=== PATIENT | female | born 1990 | race African-American/Black ===

== ENCOUNTER 2016-09-03 00:31 | Emergency (ER) | payer OTHER ==
[~2016-09-03] VITALS: Ht 170.2 cm; Wt 77.1 kg
[~2016-09-03 00:31] MED LIST: FLEXERIL10 MG PO; FLONASE16 G1 BOTH NARES; NAPROSYN500 MG PO; ZOFRAN ODT4 MG PO
[2016-09-03 01:18] LABS: HEMATOCRIT 40.9 % (36.0-46.0); MCH 31.4 PG (29.0-34.0); MCHC 35.2 G/DL (30.0-36.0); MCV 89.1 FL (83-99); MEAN PLAT.VOLUME 10.7 uM^3 (9.5-12.4); PLATELET COUNT 253 K/uL (156-360); RBC DIS.WIDTH-CV 12.2 % (11.8-14.6); RBC DIS.WIDTH-SD 38.9 % (39-53); RED BLOOD COUNT 4.59 M/uL (3.80-5.20); WHITE BLOOD COUNT 6.4 K/uL (4.1-10.2)
[2016-09-03 01:24] LABS: CHLORIDE 105 mEq/L (99-109); POTASSIUM 3.9 mEq/L (3.7-5.4); SODIUM 139 mEq/L (136-147)
[2016-09-03 01:27] LABS: GLUCOSE 97 mg/dL (70-99)
[2016-09-03 01:28] LABS: ANION GAP 8 MEQ/L (2-14)
[2016-09-03 01:30] LABS: ALKALINE PHOSPHATASE 46 IU/L (3-129); GFR ESTIMATE (CALCULATED) > 59 mL/min/
[2016-09-03 01:31] LABS: UREA NITROGEN (BUN) 13 mg/dL (9-23)
[2016-09-03 01:39] LABS: QUANTITATIVE HCG < 4.0 MIU/ML
[2016-09-03 04:28] LABS: LIPASE 18 U/L (1.0-51.0)
[2016-09-03 04:41] LABS: ADD MIUA? YES; BILIRUBIN NEGATIVE; BLOOD NEGATIVE; COLOR YELLOW ((YELLOW)); GLUCOSE (STRIP) NEGATIVE; KETONES NEGATIVE; LEUKOCYTES SMALL; NITRITE NEGATIVE; PH, URINE 6.5 (5-8); PROTEIN (STRIP) NEGATIVE; SPECIFIC GRAVITY 1.029 (1.000-1.030)
[2016-09-03 05:07] LABS: BACTERIA 2+ /HPF; CASTS NONE SEEN /LPF; CRYSTALS NONE SEEN; EPITHELIAL CELLS RARE /HPF; MUCUS RARE /LPF; RED BLOOD CELLS NONE SEEN /HPF (0-5); UCUL ADDED? NO; WHITE BLOOD CELLS 0-5 /HPF (0-5)
[2016-09-03] MEDS ORDERED: ZOFRAN8 MG PO (05:17)
[2016-09-03] MEDS ORDERED: MACROBID100 MG PO (05:17)
[2016-09-03 05:42] VITALS: BP 113/81
== END 2016-09-03 05:42 | disposition home or self-care (01) ==
LOC: EME 00:31
DX: N39.0 Urinary tract infection, site not specified (principal); R11.2 Nausea with vomiting, unspecified
CPT/HCPCS: 80053; 81003; 83690; 84702; 85027; 99281; 99284; Q0169

== ENCOUNTER 2016-11-27 22:27 | Emergency (ER) | payer OTHER ==
[~2016-11-27] VITALS: Ht 170.2 cm; Wt 82.0 kg
[~2016-11-27 22:27] MED LIST changes: +MACROBID100 MG PO; +ZOFRAN8 MG PO
[2016-11-27] MEDS ORDERED: ZOFRAN ODT4 MG PO (23:58)
[2016-11-27 23:59] LABS: HEMATOCRIT 38.7 % (36.0-46.0); MCH 30.6 PG (29.0-34.0); MCHC 34.1 G/DL (30.0-36.0); MCV 89.8 FL (83-99); MEAN PLAT.VOLUME 10.9 uM^3 (9.5-12.4); PLATELET COUNT 244 K/uL (156-360); RBC DIS.WIDTH-CV 12.2 % (11.8-14.6); RBC DIS.WIDTH-SD 40.3 % (39-53); RED BLOOD COUNT 4.31 M/uL (3.80-5.20); WHITE BLOOD COUNT 9.2 K/uL (4.1-10.2)
[2016-11-28 00:14] LABS: CHLORIDE 103 mEq/L (99-109); POTASSIUM 3.9 mEq/L (3.7-5.4); SODIUM 136 mEq/L (136-147)
[2016-11-28 00:16] LABS: GLUCOSE 91 mg/dL (70-99)
[2016-11-28 00:18] LABS: ANION GAP 6 MEQ/L (2-14); TOTAL BILIRUBIN 0.4 mg/dL (0.0-1.0)
[2016-11-28 00:20] LABS: ALKALINE PHOSPHATASE 35 IU/L (3-129); GFR ESTIMATE (CALCULATED) > 59 mL/min/
[2016-11-28 00:21] LABS: UREA NITROGEN (BUN) 9 mg/dL (9-23)
[2016-11-28 00:42] LABS: ADD MIUA? YES; BILIRUBIN NEGATIVE; BLOOD NEGATIVE; COLOR YELLOW ((YELLOW)); GLUCOSE (STRIP) NEGATIVE; KETONES NEGATIVE; LEUKOCYTES SMALL; NITRITE NEGATIVE; PROTEIN (STRIP) NEGATIVE; SPECIFIC GRAVITY 1.019 (1.000-1.030); UROBILINOGEN 0.2 MG/DL (0.2-1.0)
[2016-11-28 00:54] LABS: BACTERIA NONE SEEN /HPF; EPITHELIAL CELLS RARE /HPF; MUCUS TRACE /LPF; RED BLOOD CELLS 0-5 /HPF (0-5); WHITE BLOOD CELLS 0-5 /HPF (0-5)
[2016-11-28 00:56] LABS: QUANTITATIVE HCG 135482.8 MIU/ML
[2016-11-28 02:17] VITALS: BP 113/67
== END 2016-11-28 02:18 | disposition home or self-care (01) ==
LOC: EME 22:27
PROVIDERS: Nurse Practitioner Family
DX: O34.81 Maternal care for other abnormalities of pelvic organs, first trimester (principal); O26.891 Other specified pregnancy related conditions, first trimester; N83.202 Unspecified ovarian cyst, left side; Z3A.08 8 weeks gestation of pregnancy; R51 Headache
CPT/HCPCS: 76801; 80053; 81003; 84702; 85027; 99281; 99284; J2405; J7030

== ENCOUNTER 2016-12-08 13:14 | Emergency (ER) | payer OTHER ==
[~2016-12-08] VITALS: Ht 170.2 cm; Wt 83.0 kg
[2016-12-08 14:01] LABS: EOSINOPHIL (%) 1.5 % (0-5); EOSINOPHIL COUNT 0.1 K/uL (0-0.3); HEMATOCRIT 35.5 % (36.0-46.0); IMMATURE GRANULOCYTE (%) 0.4 % (0.0-0.7); INSTRUMENT ABS NEUTROPHIL CT 5.2 K/uL; LYMPHOCYTE COUNT 1.3 K/uL (1.0-2.8); MCH 30.8 PG (29.0-34.0); MCHC 34.6 G/DL (30.0-36.0); MCV 88.8 FL (83-99); MEAN PLAT.VOLUME 10.2 uM^3 (9.5-12.4); MONOCYTE (%) 6.5 % (3-12); MONOCYTE COUNT 0.5 K/uL (0-0.8); NEUTROPHIL (%) 73.1 % (45-76); NEUTROPHIL COUNT 5.2 K/uL (1.8-6.4); PLATELET COUNT 230 K/uL (156-360); RBC DIS.WIDTH-CV 11.9 % (11.8-14.6); RBC DIS.WIDTH-SD 38.4 % (39-53); WHITE BLOOD COUNT 7.1 K/uL (4.1-10.2)
[2016-12-08 14:52] LABS: ADD MIUA? YES; BILIRUBIN NEGATIVE; BLOOD SMALL; COLOR YELLOW ((YELLOW)); GLUCOSE (STRIP) NEGATIVE; KETONES 5; LEUKOCYTES NEGATIVE; NITRITE NEGATIVE; PROTEIN (STRIP) NEGATIVE; SPECIFIC GRAVITY 1.021 (1.000-1.030); UROBILINOGEN 0.2 MG/DL (0.2-1.0)
[2016-12-08 14:55] LABS: BACTERIA NONE SEEN /HPF; EPITHELIAL CELLS RARE /HPF; MUCUS TRACE /LPF; RED BLOOD CELLS 30-40 /HPF (0-5); WHITE BLOOD CELLS 0-5 /HPF (0-5)
[2016-12-08 16:52] VITALS: BP 105/53
== END 2016-12-08 16:52 | disposition home or self-care (01) ==
LOC: RME 13:14 → EME 13:14 → RME 16:52
PROVIDERS: Physician Assistant
DX: O20.9 Hemorrhage in early pregnancy, unspecified (principal); Z3A.10 10 weeks gestation of pregnancy; Z87.59 Personal history of other complications of pregnancy, childbirth and the puerperium
CPT/HCPCS: 76801; 81003; 84702; 85025; 86900; 86901; 99281; 99284

== ENCOUNTER → 2017-02-12 | Emergency (ER) | payer OTHER ==
[~2017-02-12] VITALS: Ht 170.2 cm; Wt 85.3 kg
[~2017-02-12] MED LIST changes: +AMOXICILLIN500 MG PO
[2017-02-12 09:30] VITALS: BP 114/69
== END | disposition home or self-care (01) ==
LOC: EME 09:27
DX: H66.91 Otitis media, unspecified, right ear (principal); Z33.1 Pregnant state, incidental; Z3A.00 Weeks of gestation of pregnancy not specified
CPT/HCPCS: 99281; 99283

== ENCOUNTER 2017-03-03 23:45 | Outpatient (CLI) | payer OTHER ==
[~2017-03-03] VITALS: Ht 170.2 cm; Wt 84.8 kg
[2017-03-04 00:15] VITALS: BP 123/67
[2017-03-04] MEDS ORDERED: PRENATAL TABLE1 EAC3 PO (00:29)
== END 2017-03-04 02:30 | disposition home or self-care (01) ==
LOC: LDRP-OP 23:45 → 2WEST 23:46
DX: O26.892 Other specified pregnancy related conditions, second trimester (principal); R10.2 Pelvic and perineal pain
CPT/HCPCS: 59025; G0378

== ENCOUNTER 2017-06-19 17:38 | Outpatient (CLI) | payer OTHER ==
[~2017-06-19 17:38] MED LIST changes: +PRENATAL TABLE1 EAC3 PO
[2017-06-19 18:04] VITALS: BP 116/63
[2017-06-19 18:33] LABS: ADD MIUA? YES; BILIRUBIN NEGATIVE; BLOOD NEGATIVE; COLOR YELLOW ((YELLOW)); GLUCOSE (STRIP) NEGATIVE; KETONES NEGATIVE; LEUKOCYTES NEGATIVE; NITRITE NEGATIVE; PROTEIN (STRIP) NEGATIVE; SPECIFIC GRAVITY 1.018 (1.000-1.030)
[2017-06-19 18:36] LABS: BACTERIA NONE SEEN /HPF; EPITHELIAL CELLS 1+ /HPF; MUCUS TRACE /LPF; RED BLOOD CELLS 0-5 /HPF (0-5); UCUL ADDED? NO; WHITE BLOOD CELLS 0-5 /HPF (0-5)
== END 2017-06-19 19:13 | disposition home or self-care (01) ==
LOC: LDRP-OP 17:38 → 2WEST 17:41 → LDRP-OP 08-01 02:42
PROVIDERS: Midwife
DX: O26.893 Other specified pregnancy related conditions, third trimester (principal); R10.9 Unspecified abdominal pain; M54.5 Low back pain; O24.410 Gestational diabetes mellitus in pregnancy, diet controlled; Z86.19 Personal history of other infectious and parasitic diseases; Z3A.38 38 weeks gestation of pregnancy
CPT/HCPCS: 59025; 81003; G0378

== ENCOUNTER 2017-06-24 08:14 | Inpatient (IN) | payer OTHER ==
[~2017-06-24] VITALS: Ht 170.2 cm; Wt 92.3 kg
[2017-06-24] VITALS (32 sets, daily range): BP systolic 98–136; BP diastolic 51–87
[2017-06-24 09:13] LABS: EOSINOPHIL (%) 1.9 % (0-5); EOSINOPHIL COUNT 0.2 K/uL (0-0.3); HEMATOCRIT 32.7 % (36.0-46.0); IMMATURE GRANULOCYTE (%) 0.7 % (0.0-0.7); IMMATURE GRANULOCYTE COUNT 0.1 K/uL; INSTRUMENT ABS NEUTROPHIL CT 7.2 K/uL; LYMPHOCYTE COUNT 1.7 K/uL (1.0-2.8); MCH 28.5 PG (29.0-34.0); MCV 86.3 FL (83-99); MEAN PLAT.VOLUME 10.1 uM^3 (9.5-12.4); MONOCYTE (%) 8.2 % (3-12); MONOCYTE COUNT 0.8 K/uL (0-0.8); NEUTROPHIL (%) 72.3 % (45-76); NEUTROPHIL COUNT 7.2 K/uL (1.8-6.4); PLATELET COUNT 241 K/uL (156-360); RBC DIS.WIDTH-CV 13.2 % (11.8-14.6); RBC DIS.WIDTH-SD 40.8 % (39-53); RED BLOOD COUNT 3.79 M/uL (3.80-5.20)
[2017-06-24 13:03] LABS: POINT-OF-CARE METER ID UU13113692
[2017-06-25 08:12] VITALS: BP 122/64
[2017-06-25 14:42] VITALS: BP 117/61
[2017-06-26 08:00] VITALS: BP 137/67
[2017-06-26] MEDS ORDERED: IBUPROFEN800 MG PO (08:18)
[2017-06-26] MEDS ORDERED: HYDROCODON-ACE1 EAC7 PO (08:18)
== END 2017-06-26 12:00 | disposition home or self-care (01) | DRG 775 ==
LOC: LDRP-OP 08:14 → 2WEST 08:16 → LDRP-OP 08-01 21:17
PROVIDERS: Advanced Practice Midwife; Obstetrics & Gynecology
PROC: 10E0XZZ Delivery of Products of Conception, External Approach (ICD-10-PCS; principal; 2017-06-24)
PROC: 3E033VJ Introduction of Other Hormone into Peripheral Vein, Percutaneous Approach (ICD-10-PCS; 2017-06-24)
PROC: 10907ZC Drainage of Amniotic Fluid, Therapeutic from Products of Conception, Via Natural or Artificial Opening (ICD-10-PCS; 2017-06-24)
PROC: 3E0S33Z Introduction of Anti-inflammatory into Epidural Space, Percutaneous Approach (ICD-10-PCS; 2017-06-24)
DX: O41.03X1 Oligohydramnios, third trimester, fetus 1 (principal); Z37.0 Single live birth; O24.410 Gestational diabetes mellitus in pregnancy, diet controlled; Z87.440 Personal history of urinary (tract) infections; D64.9 Anemia, unspecified; O99.02 Anemia complicating childbirth; Z3A.39 39 weeks gestation of pregnancy; Z23 Encounter for immunization
CPT/HCPCS: 82948; 85025; 90686; C1755; J3010; J7120